=== PATIENT | male | born 1955 | race Caucasian/White ===

== ENCOUNTER 2022-09-08 11:30 | Emergency (ER) | payer BC, OTHER, SELFPAY ==
[2022-09-08 11:33] VITALS: BP 159/84; PULSE 91; RESP 15; TEMP 36.2; O2SAT 99; BMI 26.6
--- NOTE | 2022-09-08 11:35 | DI.RAD.S_ITS ---
PROCEDURE: XR CHEST 1V INDICATIONS: chest pain TECHNIQUE: One view of the chest was acquired. COMPARISON: None. FINDINGS: Surgical changes and devices: None. Lungs and pleura: Mild thickening of the interstitial markings and bronchial wall thickening. No dense consolidation, effusion, or pneumothorax. Mediastinum: Mediastinal contours appear normal. Heart size is normal. Bones and chest wall: No suspicious bony lesions. Overlying soft tissues appear unremarkable. IMPRESSION: 1. Mild interstitial and bronchial wall thickening may indicate bronchitis, viral/interstitial pneumonitis, chronic changes of COPD or edema. Dictated by: Yani Mandel M.D. on 09/08/2022 at 11:40 Approved by: Yani Mandel M.D. on 09/08/2022 at 11:43
[2022-09-08 11:45] LABS: Prothrombin Time 11.9 SECONDS (10.1-12.7)
[2022-09-08 11:48] LABS: PTT Partial Thromboplastin Tim 29 SECONDS (26-36)
[2022-09-08 11:50] LABS: Alanine Aminotransferase 111 IU/L (<50); Albumin 4.8 g/dL (3.5-5.0); Albumin Globulin Ratio 1.2 (1.0-2.8); Alkaline Phosphatase 93 U/L (38-126); Aspartate Aminotransferase 87 IU/L (17-59); BUN Creatinine Ratio 23.5 (6-22); Bilirubin Total 1.1 mg/dL (0.2-1.3); Blood Urea Nitrogen 27 mg/dL (9-20); Calcium 9.5 mg/dL (8.4-10.2); Carbon Dioxide 20 mmol/L (22-32); Chloride 108 mmol/L (98-107); Creatine Kinase 254 U/L (55-170); Estimated Glomerular Filt Rate > 60 mL/min (>60); Globulin 3.9 g/dL (1.7-4.1); Glucose 99 mg/dL (80-110); HEMOLYSIS 17 (0-50); Lipase 268 U/L (23-300); Magnesium 1.8 mg/dL (1.6-2.3); Potassium 4.4 mmol/L (3.4-5.1); Sodium 142 mmol/L (137-145); Total Protein 8.7 g/dL (6.3-8.2)
[2022-09-08 11:53] LABS: Add Manual Diff / Slide Review NO; Basophils Absolute Auto 100 /uL (0-100); Eosinophils Absolute Auto 200 /uL (0-450); Eosinophils Percent Auto 2.7 % (2-4); Hematocrit 41.4 % (41-53); Hemoglobin 13.8 g/dL (13.5-17.5); Lymphocytes Absolute Auto 2100 /uL (1100-4500); Mean Corpuscular HGB Conc 33.4 % (30-36); Mean Corpuscular Hemoglobin 31.2 PG (26-34); Mean Corpuscular Volume 93.3 fL (80-100); Monocytes Absolute Auto 600 /uL (0-900); Monocytes Percent Auto 9.6 % (3-14); Neutrophils Absolute Auto 3600 /uL (1500-7000); Neutrophils Percent Auto 54.7 % (50-75); Platelet Count 168 X10^3/uL (150-400); Red Blood Cell Count 4.44 X10^6/uL (4.5-5.9); Red Cell Distribution Width 13.8 % (11.6-14.8); White Blood Cell Count 6.6 X10^3/uL (4.5-11.0)
[2022-09-08 12:01] LABS: Troponin I 0.058 ng/mL (0.01-0.034)
[2022-09-08 12:04] LABS: CKMB % Relative Index 1.9 % (1.5-5.0); Creatine Kinase MB 4.77 ng/mL (<2.37)
[2022-09-08 12:37] VITALS: BP 127/73; PULSE 79; RESP 17; O2SAT 99
[2022-09-08 13:00] VITALS: BP 140/71; PULSE 83; RESP 20; O2SAT 99
[2022-09-08] MEDS: ASPIRIN 81 MG CHEW TAB 324 MG PO (13:00)
[2022-09-08 13:30] VITALS: BP 114/66; PULSE 71; RESP 16; O2SAT 98
--- NOTE | 2022-09-08 13:38 | ED.CHESTPAIN ---
HPI - Chest Pain General Chief Complaint: Chest Pain Stated Complaint: Exerti Chest Pain Time Seen by Provider: 09/08/22 12:24 Source: patient Mode of arrival: Ambulatory Limitations: no limitations History of Present Illness HPI narrative: This is a 66-year-old male history of hypertension and dyslipidemia who smokes at daily and drinks 3 alcoholic drinks daily. Patient presents with a sensation of chest burning patient states he is had several episodes on and off since July he states it is substernal does not radiate to his neck, arm, back or abdomen. He states it is always with exertion when he walks a distance. He states he does not get it every time he exerts himself patient states he typically has to walk out of the [place] to smoke and leave the ground, today he walked had no issues and when he returned he got this burning sensation in his chest. He states if he rests either sitting or standing for a period of time it will typically go away in 5-6 minutes. He is currently asymptomatic. No syncope. No shortness of breath, diaphoresis, no fevers or chills, no cold cough or congestion, no nausea or vomiting. Patient states cholecystectomy 8 years ago, he smokes tobacco daily, patient states he drinks 2 or 3 alcoholic drinks nightly, no illicit. He denies any cardiac, embolic pulmonary family history. He is originally from [facility] but has not flown back or had any long distance travel in the last 5 years. His primary care is Ovi Dalal from [place]. Related Data Allergies Allergy/AdvReac Type Severity Reaction Status Date / Time No Known Drug Allergies Allergy Verified 09/08/22 11:33 Review of Systems Review of Systems ROS Unobtainable: All systems reviewed & are unremarkable except as noted in HPI and below Patient History Social History Smoking Status: Current every day smoker Smoking Status: Current every day smoker alcohol intake frequency: a few times a week Substance Use Type: does not use Exam Initial Vital Signs Initial Vital Signs: Vital Signs Temperature 97.1 F L 09/08/22 11:33 Pulse Rate 91 H 09/08/22 11:33 Respiratory Rate 15 09/08/22 11:33 Blood Pressure 159/84 H 09/08/22 11:33 Pulse Oximetry 99 09/08/22 11:33 Oxygen Delivery Method 09/08/22 11:33 Course Orders Ordered: ED Orders 09/08/22 11:35 XR chest 1V Stat 09/08/22 11:38 Complete Blood Count AUTO DIFF Stat Comprehensive Metabolic Panel Stat Lipase Stat Magnesium Stat Partial Thromboplastin Time Stat Prothrombin Time INR Stat Troponin & CK Cardiac Panel Stat 09/08/22 11:39 EKG-12 Lead Stat 09/08/22 13:20 BNP [NT-proBNP (BNP-Adult 18+)] Stat Trop I [Troponin I] Stat 09/08/22 13:30 COVID19 -Nasal RAPID/Pre-Proc Stat Discontinued Medications Aspirin (Aspirin 81 Mg Chew Tab) 324 mg PO NOW ONE Stop: 09/08/22 12:26 Last Admin: 09/08/22 13:00 Dose: 324 mg Documented By: AT Heparin Sodium (Porcine) (Heparin 5,000 Unit/Ml Vial) 5,000 unit IV NOW ONE Stop: 09/08/22 14:04 Heparin Sodium/Dextrose (Heparin Drip) 25,000 unit in 500 mls @ 20 mls/hr IV CONT JERRI; Protocol Nitroglycerin (Nitroglycerin 0.4 Mg Sl Tab) 0.4 mg SL [id number] PRN PRN Reason: Chest Pain Consultations Consultation #1: Dr. Salmeron, cardiology: deferred patient refusing treatment or transfer and left AMA. Vital Signs Vital signs: Vital Signs - 8 hr 09/08/22 11:33 09/08/22 12:37 09/08/22 12:37 Temperature 97.1 F L Pulse Rate 91 H 79 Respiratory Rate 15 17 Blood Pressure 159/84 H 127/73 Pulse Oximetry 99 99 Oxygen Delivery Method Room Air 09/08/22 13:00 09/08/22 13:00 09/08/22 13:30 Temperature Pulse Rate 83 Respiratory Rate 20 Blood Pressure 140/71 114/66 Pulse Oximetry 99 Oxygen Delivery Method Room Air 09/08/22 13:30 09/08/22 14:00 09/08/22 14:00 Temperature Pulse Rate 71 72 Respiratory Rate 16 24 Blood Pressure 125/78 Pulse Oximetry 98 100 Oxygen Delivery Method Room Air 09/08/22 14:30 Temperature Pulse Rate 79 Respiratory Rate 20 Blood Pressure Pulse Oximetry Oxygen Delivery Method MDM - Chest Pain Lab Data 09/08/22 11:38 09/08/22 11:38 Labs: Lab Results 09/08/22 09/08/22 09/08/22 Range/Units 11:38 11:38 11:38 WBC 6.6 (4.5-11.0) X10^3/uL RBC 4.44 L (4.5-5.9) X10^6/uL Hgb 13.8 (13.5-17.5) g/dL Hct 41.4 (41-53) % MCV 93.3 (80-100) fL MCH 31.2 (26-34) PG MCHC 33.4 (30-36) % RDW 13.8 (11.6-14.8) % Plt Count 168 (150-400) X10^3/uL Neut % (Auto) 54.7 (50-75) % Lymph % (Auto) 32.0 (25-40) % Monona % (Auto) 9.6 (3-14) % Eos % (Auto) 2.7 (2-4) % Baso % (Auto) 1.0 (0-2) % Neut # (Auto) 3600 (7727-8931) /uL Lymph # (Auto) 2100 (7611-8669) /uL Monona # (Auto) 600 (0-900) /uL Eos # (Auto) 200 (0-450) /uL Baso # (Auto) 100 (0-100) /uL PT 11.9 (10.1-12.7) SECONDS INR 1.0 (0.9-1.3) APTT 29 (26-36) SECONDS Sodium 142 (137-145) mmol/L Potassium 4.4 (3.4-5.1) mmol/L Chloride 108 H (98-107) mmol/L Carbon Dioxide 20 L (22-32) mmol/L BUN 27 H (9-20) mg/dL Creatinine 1.15 (0.66-1.25) mg/dL Estimated GFR > 60 (>60) mL/min BUN/Creatinine Ratio 23.5 H (6-22) Glucose 99 (80-110) mg/dL Calcium 9.5 (8.4-10.2) mg/dL Magnesium 1.8 (1.6-2.3) mg/dL Total Bilirubin 1.1 (0.2-1.3) mg/dL AST 87 H (17-59) IU/L ALT 111 H (<50) IU/L Alkaline Phosphatase 93 (38-126) U/L Total Creatine Kinase 254 H (55-170) U/L CK-MB (CK-2) 4.77 H (<2.37) ng/mL CK-MB (CK-2) Rel Index 1.9 (1.5-5.0) % Troponin I 0.058 H (0.01-0.034) ng/mL NT-Pro-B Natriuret Pep (<125) pg/mL Total Protein 8.7 H (6.3-8.2) g/dL Albumin 4.8 (3.5-5.0) g/dL Globulin 3.9 (1.7-4.1) g/dL Albumin/Globulin Ratio 1.2 (1.0-2.8) Lipase 268 (23-300) U/L SARS-CoV-2 (PCR) (Negative) 09/08/22 09/08/22 09/08/22 Range/Units 13:20 13:20 13:30 WBC (4.5-11.0) X10^3/uL RBC (4.5-5.9) X10^6/uL Hgb (13.5-17.5) g/dL Hct (41-53) % MCV (80-100) fL MCH (26-34) PG MCHC (30-36) % RDW (11.6-14.8) % Plt Count (150-400) X10^3/uL Neut % (Auto) (50-75) % Lymph % (Auto) (25-40) % Monona % (Auto) (3-14) % Eos % (Auto) (2-4) % Baso % (Auto) (0-2) % Neut # (Auto) (4763-7158) /uL Lymph # (Auto) (2062-7029) /uL Monona # (Auto) (0-900) /uL Eos # (Auto) (0-450) /uL Baso # (Auto) (0-100) /uL PT (10.1-12.7) SECONDS INR (0.9-1.3) APTT (26-36) SECONDS Sodium (137-145) mmol/L Potassium (3.4-5.1) mmol/L Chloride (98-107) mmol/L Carbon Dioxide (22-32) mmol/L BUN (9-20) mg/dL Creatinine (0.66-1.25) mg/dL Estimated GFR (>60) mL/min BUN/Creatinine Ratio (6-22) Glucose (80-110) mg/dL Calcium (8.4-10.2) mg/dL Magnesium (1.6-2.3) mg/dL Total Bilirubin (0.2-1.3) mg/dL AST (17-59) IU/L ALT (<50) IU/L Alkaline Phosphatase (38-126) U/L Total Creatine Kinase (55-170) U/L CK-MB (CK-2) (<2.37) ng/mL CK-MB (CK-2) Rel Index (1.5-5.0) % Troponin I 0.152 H* (0.01-0.034) ng/mL NT-Pro-B Natriuret Pep 440 H (<125) pg/mL Total Protein (6.3-8.2) g/dL Albumin (3.5-5.0) g/dL Globulin (1.7-4.1) g/dL Albumin/Globulin Ratio (1.0-2.8) Lipase (23-300) U/L SARS-CoV-2 (PCR) Negative (Negative) Imaging Data Chest x-ray: Radiologist's Impression: [address] [id number] XRay Report Signed Patient: Lubna Lopez MR#: [id number] : 1955 Acct:[id number] Age/Sex: 66 / M Date of Service: 09/08/22 Loc: ED Accession Number: [id number] ?? Procedure: XR chest 1V Ordering Provider: Mercedez Willett D.O. PROCEDURE:? XR CHEST 1V ? INDICATIONS:? chest pain ? TECHNIQUE:? One view of the chest was acquired.? ? COMPARISON:? None. ? FINDINGS:? ? Surgical changes and devices:? None.? ? Lungs and pleura:? Mild thickening of the interstitial markings and bronchial wall thickening.? No dense consolidation, effusion, or pneumothorax. ? Mediastinum:? Mediastinal contours appear normal.? Heart size is normal.? ? Bones and chest wall:? No suspicious bony lesions.? Overlying soft tissues appear unremarkable.? ? IMPRESSION:? ? 1. Mild interstitial and bronchial wall thickening may indicate bronchitis, viral/interstitial pneumonitis, chronic changes of COPD or edema.? ? ? Dictated by: Yani Mandel M.D. on 09/08/2022 at 11:40 ? ? Approved by: Yani Mandel M.D. on 09/08/2022 at 11:43?? ECG Data Attestation: I personally reviewed and interpreted this ECG as follows: Prior ECG tracings: not available for review Interpretation: Sinus rhythm rate 87 OK 184 QRS of [address] elevation but patient has clear depression lateral leads, inverted T-waves in V2 V3. Patient does not have priors for comparison. Repeat EKG MDM Narrative Medical decision making narrative: This is a 66-year-old male with exertional chest pain with ST depressions on his EKG initial troponin was indeterminate repeat troponin is positive. Patient's chest pain had resolved, patient and I discussed his findings today that appears he is having a heart attack. That he needs blood thinners until he can be transferred to facility with bili do heart catheterization, stenting and opening up the blood vessel to prevent further damage to his heart and . Patient expresses his understanding he states he does not want to spend the night in the hospital [facility], he understands that he needs to be some place with the ability do heart catheterization. He prefers to go to [place] he states he will go home tonight, follow up with his physician and go to hospital possibly tomorrow. Discussed that he should be seen today and if he is going to choose to leave I would recommend he goes place with the ability to heart catheterization today. Patient expresses once again he will go home and follow-up possibly tomorrow. We did review that he should be on blood thinners to protect his heart such as heparin and that I do not recommend that he leaves and that you can have increased damage to his heart as well as . Patient expresses understanding he is very polite during this discussion, he states he was doing research on his phone and understands the risk at this time. Patient has coworker in the room during second half of discussion, they also urged patient to seek treatment with us today but patient continues to politely declined. Discharge Plan Departure Patient Disposition: Left Against Medical Advice Clinical Impression: Non-ST elevation [facility] (NSTEMI) Activity Restrictions/Additional Instructions: You are having a heart attack today, you need to be on blood thinner and go to a facility with the ability to do a heart catheterization to place a stent and open up the blood vessels so that your heart muscle does not . Your heart muscle can continue to and if this worsens it can kill you today. I would recommend that you go to a facility with the ability to treat heart attacks instead of going home. At least take aspirin 325 mg daily. You can return at any time for repeat evaluation. Stand Alone Forms: Against Medical Advice
[2022-09-08 14:00] VITALS: BP 125/78; PULSE 72; RESP 24; O2SAT 100
[2022-09-08 14:00] LABS: COVID19 -Nasal RAPID Negative (Negative)
[2022-09-08 14:01] LABS: NT-proBNP (BNP-Adult 18+) 440 pg/mL (<125); Troponin I 0.152 ng/mL (0.01-0.034)
[2022-09-08 14:30] VITALS: PULSE 79; RESP 20
== END 2022-09-08 14:42 | disposition left against medical advice (07) ==
PROVIDERS: Emergency Provider Emergency Medicine; PCP Family Medicine
DX: I21.4 Non-ST elevation (NSTEMI) myocardial infarction (principal); Z20.822 Contact with and (suspected) exposure to COVID-19
CPT/HCPCS: 71045; 80053; 82550; 82553; 83690; 83735; 83880; 84484; 85025; 85610; 85730; 87635; 93005; 99283; 99284; C9803